=== PATIENT | male | born 2005 | race African-American/Black ===

== ENCOUNTER 2024-05-13 23:57 | Emergency (ER) | payer MEDICAID, SELFPAY ==
[2024-05-14] VITALS (64 sets, daily range): BP systolic 92–132; BP diastolic 41–93; PULSE 61–98; RESP 16–18; TEMP 36.3–37.2; O2SAT 81–100; BMI 20.1
--- NOTE | 2024-05-14 00:45 | ED.GENADULT ---
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 or homicidal thoughts to me but is heavily intoxicated. Counseled patient that he is on a police hold from law enforcement at this time. Cannot be fully evaluated while he is intoxicated. Will obtain typical labs. He was agreeable to oral Ativan. Will movement to a safe room as soon as 1 is available. Patient will need mental health tele assessment once he is sober, anticipate this in the morning. Will monitor closely overnight. I would not recommend allowing his father to visit. <Parul Salinas MD - Last Filed: 05/15/24 23:55> Reevaluation(s) Time of Reevaluation #1: 01:49 <Parul Salinas MD - Last Filed: 05/15/24 23:55> Reevaluation #1: Patient became increasingly agitated. He was given 5 mg of IM Zyprexa without adequate improvement. Because of this, a Dr. Prieto was called and he was placed in four-point restraints with the help of law enforcement. Labs are reassuring with the exception of blood alcohol level nearly triple the legal limit which was anticipated. Will attempt to wean him from restraints as able. <Parul Salinas MD - Last Filed: 05/15/24 23:55> Time of Reevaluation #2: 15:00 <Tala Franco MD - Last Filed: 05/22/24 22:18> Reevaluation #2: Up patient's slept most of the night and morning. Woke up feeling remorseful about his behavior. Mental health assessment was done and patient endorses suicidal ideation. Has a history of inpatient patient hospitalization. Is requesting inpatient hospitalization at this time as he states he does not feel safe going back to his father's place secondary to suicidal ideation. Awaiting inpatient psych placement at this time. Examination reveals a well-nourished male in no acute distress. Hemodynamically stable. Alert and cooperative. Cardiovascular regular rate rhythm, lungs clear bilaterally. Requesting dinner. <Tala Franco MD - Last Filed: 05/22/24 22:18> Time of Reevaluation #3: 20:12 <Perico Reddy MD - Last Filed: 05/14/24 21:28> Reevaluation #3: Patient accepted in sign-out from prior provider, initially presented intoxicated and suicidal. Patient was briefly in restraints due to intoxication and agitation, however has been cooperative for the better part of the day. Ongoing suicide ideation and waiting for acceptance for behavioral health admission. <Perico Reddy MD - Last Filed: 05/14/24 21:28> Additional Reevaluation(s): 9:20 p.m. patient accepted for transfer to [facility]. <Perico Reddy MD - Last Filed: 05/14/24 21:28> Vital Signs Vital signs: Initial Vital Signs Temperature 97.3 F L 05/14/24 00:18 Temperature Source Temporal Artery Scan 05/14/24 00:18 Pulse Rate 98 05/14/24 00:18 Pulse Rhythm Regular 05/14/24 00:18 Respiratory Rate 18 05/14/24 00:18 Blood Pressure 130/83 05/14/24 00:18 Blood Pressure Mean 98 05/14/24 00:18 Blood Pressure Position Sitting 05/14/24 00:18 Pulse Oximetry 99 05/14/24 00:18 Oxygen Delivery Method Room Air 05/14/24 00:18 Vital Signs Temperature 97.3 F L 05/14/24 00:18 Pulse Rate 98 05/14/24 00:18 Respiratory Rate 18 05/14/24 00:18 Blood Pressure 130/83 05/14/24 00:18 Pulse Oximetry 99 05/14/24 00:18 Oxygen Delivery Method Room Air 05/14/24 00:18 Temperature 98.9 F 05/14/24 22:13 Pulse Rate 77 05/14/24 22:13 Respiratory Rate 18 05/14/24 22:13 Blood Pressure 132/80 05/14/24 22:13 Pulse Oximetry 99 05/14/24 22:13 Oxygen Delivery Method Room Air 05/14/24 22:13 <Parul Salinas MD - Last Filed: 05/15/24 23:55> Initial Vital Signs Temperature 97.3 F L 05/14/24 00:18 Temperature Source Temporal Artery Scan 05/14/24 00:18 Pulse Rate 98 05/14/24 00:18 Pulse Rhythm Regular 05/14/24 00:18 Respiratory Rate 18 05/14/24 00:18 Blood Pressure 130/83 05/14/24 00:18 Blood Pressure Mean 98 05/14/24 00:18 Blood Pressure Position Sitting 05/14/24 00:18 Pulse Oximetry 99 05/14/24 00:18 Oxygen Delivery Method Room Air 05/14/24 00:18 Vital Signs Temperature 97.3 F L 05/14/24 00:18 Pulse Rate 98 05/14/24 00:18 Respiratory Rate 18 05/14/24 00:18 Blood Pressure 130/83 05/14/24 00:18 Pulse Oximetry 99 05/14/24 00:18 Oxygen Delivery Method Room Air 05/14/24 00:18 Temperature 98.9 F 05/14/24 22:13 Pulse Rate 77 05/14/24 22:13 Respiratory Rate 18 05/14/24 22:13 Blood Pressure 132/80 05/14/24 22:13 Pulse Oximetry 99 05/14/24 22:13 Oxygen Delivery Method Room Air 05/14/24 22:13 <Tala Franco MD - Last Filed: 05/22/24 22:18> Initial Vital Signs Temperature 97.3 F L 05/14/24 00:18 Temperature Source Temporal Artery Scan 05/14/24 00:18 Pulse Rate 98 05/14/24 00:18 Pulse Rhythm Regular 05/14/24 00:18 Respiratory Rate 18 05/14/24 00:18 Blood Pressure 130/83 05/14/24 00:18 Blood Pressure Mean 98 05/14/24 00:18 Blood Pressure Position Sitting 05/14/24 00:18 Pulse Oximetry 99 05/14/24 00:18 Oxygen Delivery Method Room Air 05/14/24 00:18 Vital Signs Temperature 97.3 F L 05/14/24 00:18 Pulse Rate 98 05/14/24 00:18 Respiratory Rate 18 05/14/24 00:18 Blood Pressure 130/83 05/14/24 00:18 Pulse Oximetry 99 05/14/24 00:18 Oxygen Delivery Method Room Air 05/14/24 00:18 Temperature 98.9 F 05/14/24 22:13 Pulse Rate 77 05/14/24 22:13 Respiratory Rate 18 05/14/24 22:13 Blood Pressure 132/80 05/14/24 22:13 Pulse Oximetry 99 05/14/24 22:13 Oxygen Delivery Method Room Air 05/14/24 22:13 <Perico Reddy MD - Last Filed: 05/14/24 21:28> Medications Administered Medications: Discontinued Medications Generic Name Dose Route Start Last Admin Trade Name Freq PRN Reason Stop Dose Admin Lorazepam 2 mg 05/14/24 00:43 05/14/24 00:52 Lorazepam 1 Mg Tablet PO 05/14/24 00:44 2 mg ONCE ONE Administration Lorazepam 2 mg 05/14/24 01:47 05/14/24 01:50 Lorazepam 2 Mg/Ml Inj IM 05/14/24 01:48 2 mg ONCE ONE Administration Olanzapine 5 mg 05/14/24 01:15 05/14/24 01:30 Olanzapine 5 Mg/Ml Inj IM 5 mg Q4H PRN Administration Agitation <Parul Salinas MD - Last Filed: 05/15/24 23:55> Discontinued Medications Generic Name Dose Route Start Last Admin Trade Name Freq PRN Reason Stop Dose Admin Lorazepam 2 mg 05/14/24 00:43 05/14/24 00:52 Lorazepam 1 Mg Tablet PO 05/14/24 00:44 2 mg ONCE ONE Administration Lorazepam 2 mg 05/14/24 01:47 05/14/24 01:50 Lorazepam 2 Mg/Ml Inj IM 05/14/24 01:48 2 mg ONCE ONE Administration Olanzapine 5 mg 05/14/24 01:15 05/14/24 01:30 Olanzapine 5 Mg/Ml Inj IM 5 mg Q4H PRN Administration Agitation <Tala Franco MD - Last Filed: 05/22/24 22:18> Discontinued Medications Generic Name Dose Route Start Last Admin Trade Name Freq PRN Reason Stop Dose Admin Lorazepam 2 mg 05/14/24 00:43 05/14/24 00:52 Lorazepam 1 Mg Tablet PO 05/14/24 00:44 2 mg ONCE ONE Administration Lorazepam 2 mg 05/14/24 01:47 05/14/24 01:50 Lorazepam 2 Mg/Ml Inj IM 05/14/24 01:48 2 mg ONCE ONE Administration Olanzapine 5 mg 05/14/24 01:15 05/14/24 01:30 Olanzapine 5 Mg/Ml Inj IM 5 mg Q4H PRN Administration Agitation <Perico Reddy MD - Last Filed: 05/14/24 21:28> Medical Decision Making Lab Data Lab results reviewed: Yes I reviewed the patient's lab results <Parul Salinas MD - Last Filed: 05/15/24 23:55> Lab results narrative: Alcohol level 3 times the legal limit, labs otherwise reassuring. <Parul Salinas MD - Last Filed: 05/15/24 23:55> Labs: Lab Results 05/14/24 05/14/24 05/14/24 Range/Units 01:09 20:30 21:14 WBC 8.24 (4.50-11.00) K/uL RBC 5.31 (4.30-5.90) m/uL Hgb 16.3 (13.5-17.5) gm/dL Hct 46.8 (37.0-53.0) % MCV 88 (80-100) fL MCH 31 (26-34) pg MCHC 35 (32-36) gm/dL RDW Coeff of Shima 12.9 (11.5-15.5) % Plt Count 318 (140-440) K/uL Neut % (Auto) 68.9 (42.0-72.0) % Lymph % (Auto) 22.5 (20-44) % Wells % (Auto) 6.2 (0.0-11.0) % Eos % (Auto) 1.7 (0.0-7.0) % Baso % (Auto) 0.6 (0.0-3.0) % Neut # (Auto) 5.68 (1.7-7.0) K/uL Lymph # (Auto) 1.85 (0.90-2.90) K/uL Wells # (Auto) 0.50 (0.00-0.90) K/UL Eos # (Auto) 0.14 (0.00-0.50) K/uL Baso # (Auto) 0.05 (0.00-0.30) K/uL Abs Immat Gran (auto) 0.01 (0.00-0.30) K/uL Imm/Tot Granulo (auto) 0.1 % Sodium 145 (135-149) mmol/L Potassium 4.0 (3.6-5.1) mmol/L Chloride 111 (96-114) mmol/L Carbon Dioxide 21 (20-32) mmol/L Anion Gap 13 (7-15) mEq/L BUN 11 (5-24) mg/dL Creatinine 0.9 (0.5-1.5) mg/dL Estimated Creat Clear 117.60 Estimated GFR 125 ml/min Glucose 90 (60-115) mg/dL Calcium 9.0 (8.4-10.6) mg/dL TSH 1.060 (0.270-4.200) uIU/mL Salicylates < 1.0 L (1.0-10) mg/dL Urine Opiates Screen Negative (Negative) Ur Oxycodone Screen Negative (Negative) Urine Methadone Screen Negative (Negative) Acetaminophen < 10.0 L (10.0-30.0) ug/mL Ur Barbiturates Screen Negative (Negative) U Tricyclic Antidepress Negative (Negative) Ur Phencyclidine Scrn Negative (Negative) Ur Amphetamines Screen Negative (Negative) U Methamphetamines Scrn Negative (Negative) U Benzodiazepines Scrn POSITIVE A (Negative) Urine Cocaine Screen Negative (Negative) U Marijuana (THC) Screen POSITIVE A (Negative) Ur Drug Screen Comment See Note Ethyl Alcohol 0.22 H < 0.01 L (0.01-0.03) % <Parul Salinas MD - Last Filed: 05/15/24 23:55> Lab Results 05/14/24 05/14/24 05/14/24 Range/Units 01:09 20:30 21:14 WBC 8.24 (4.50-11.00) K/uL RBC 5.31 (4.30-5.90) m/uL Hgb 16.3 (13.5-17.5) gm/dL Hct 46.8 (37.0-53.0) % MCV 88 (80-100) fL MCH 31 (26-34) pg MCHC 35 (32-36) gm/dL RDW Coeff of Shima 12.9 (11.5-15.5) % Plt Count 318 (140-440) K/uL Neut % (Auto) 68.9 (42.0-72.0) % Lymph % (Auto) 22.5 (20-44) % Wells % (Auto) 6.2 (0.0-11.0) % Eos % (Auto) 1.7 (0.0-7.0) % Baso % (Auto) 0.6 (0.0-3.0) % Neut # (Auto) 5.68 (1.7-7.0) K/uL Lymph # (Auto) 1.85 (0.90-2.90) K/uL Wells # (Auto) 0.50 (0.00-0.90) K/UL Eos # (Auto) 0.14 (0.00-0.50) K/uL Baso # (Auto) 0.05 (0.00-0.30) K/uL Abs Immat Gran (auto) 0.01 (0.00-0.30) K/uL Imm/Tot Granulo (auto) 0.1 % Sodium 145 (135-149) mmol/L Potassium 4.0 (3.6-5.1) mmol/L Chloride 111 (96-114) mmol/L Carbon Dioxide 21 (20-32) mmol/L Anion Gap 13 (7-15) mEq/L BUN 11 (5-24) mg/dL Creatinine 0.9 (0.5-1.5) mg/dL Estimated Creat Clear 117.60 Estimated GFR 125 ml/min Glucose 90 (60-115) mg/dL Calcium 9.0 (8.4-10.6) mg/dL TSH 1.060 (0.270-4.200) uIU/mL Salicylates < 1.0 L (1.0-10) mg/dL Urine Opiates Screen Negative (Negative) Ur Oxycodone Screen Negative (Negative) Urine Methadone Screen Negative (Negative) Acetaminophen < 10.0 L (10.0-30.0) ug/mL Ur Barbiturates Screen Negative (Negative) U Tricyclic Antidepress Negative (Negative) Ur Phencyclidine Scrn Negative (Negative) Ur Amphetamines Screen Negative (Negative) U Methamphetamines Scrn Negative (Negative) U Benzodiazepines Scrn POSITIVE A (Negative) Urine Cocaine Screen Negative (Negative) U Marijuana (THC) Screen POSITIVE A (Negative) Ur Drug Screen Comment See Note Ethyl Alcohol 0.22 H < 0.01 L (0.01-0.03) % <Tala Franco MD - Last Filed: 05/22/24 22:18> Lab Results 05/14/24 05/14/24 05/14/24 Range/Units 01:09 20:30 21:14 WBC 8.24 (4.50-11.00) K/uL RBC 5.31 (4.30-5.90) m/uL Hgb 16.3 (13.5-17.5) gm/dL Hct 46.8 (37.0-53.0) % MCV 88 (80-100) fL MCH 31 (26-34) pg MCHC 35 (32-36) gm/dL RDW Coeff of Shima 12.9 (11.5-15.5) % Plt Count 318 (140-440) K/uL Neut % (Auto) 68.9 (42.0-72.0) % Lymph % (Auto) 22.5 (20-44) % Wells % (Auto) 6.2 (0.0-11.0) % Eos % (Auto) 1.7 (0.0-7.0) % Baso % (Auto) 0.6 (0.0-3.0) % Neut # (Auto) 5.68 (1.7-7.0) K/uL Lymph # (Auto) 1.85 (0.90-2.90) K/uL Wells # (Auto) 0.50 (0.00-0.90) K/UL Eos # (Auto) 0.14 (0.00-0.50) K/uL Baso # (Auto) 0.05 (0.00-0.30) K/uL Abs Immat Gran (auto) 0.01 (0.00-0.30) K/uL Imm/Tot Granulo (auto) 0.1 % Sodium 145 (135-149) mmol/L Potassium 4.0 (3.6-5.1) mmol/L Chloride 111 (96-114) mmol/L Carbon Dioxide 21 (20-32) mmol/L Anion Gap 13 (7-15) mEq/L BUN 11 (5-24) mg/dL Creatinine 0.9 (0.5-1.5) mg/dL Estimated Creat Clear 117.60 Estimated GFR 125 ml/min Glucose 90 (60-115) mg/dL Calcium 9.0 (8.4-10.6) mg/dL TSH 1.060 (0.270-4.200) uIU/mL Salicylates < 1.0 L (1.0-10) mg/dL Urine Opiates Screen Negative (Negative) Ur Oxycodone Screen Negative (Negative) Urine Methadone Screen Negative (Negative) Acetaminophen < 10.0 L (10.0-30.0) ug/mL Ur Barbiturates Screen Negative (Negative) U Tricyclic Antidepress Negative (Negative) Ur Phencyclidine Scrn Negative (Negative) Ur Amphetamines Screen Negative (Negative) U Methamphetamines Scrn Negative (Negative) U Benzodiazepines Scrn POSITIVE A (Negative) Urine Cocaine Screen Negative (Negative) U Marijuana (THC) Screen POSITIVE A (Negative) Ur Drug Screen Comment See Note Ethyl Alcohol 0.22 H < 0.01 L (0.01-0.03) % <Perico Reddy MD - Last Filed: 05/14/24 21:28> Discharge Plan Discharge Follow Up/Referrals: Provider,Not a Local [Primary Care Provider] - <Parul Salinas MD - Last Filed: 05/15/24 23:55>
[2024-05-14] MEDS: LORazepam 1 MG TABLET 2 MG PO (00:52)
--- NOTE | 2024-05-14 01:12 | ED.NURSE ---
Pt attempting to use plastic drinking straw to cut his left upper forearm. No cuts visible from the straw. This staff member entered room and removed straw from patient. Plastic sandwich container also removed from pt room.
[2024-05-14 01:14] LABS: Basophils Absolute Auto 0.05 K/uL (0.00-0.30); Basophils Percent Auto 0.6 % (0.0-3.0); Eosinophils Absolute Auto 0.14 K/uL (0.00-0.50); Eosinophils Percent Auto 1.7 % (0.0-7.0); Hematocrit 46.8 % (37.0-53.0); Hemoglobin* 16.3 gm/dL (13.5-17.5); Immature Granulocytes Abs Auto 0.01 K/uL (0.00-0.30); Immature Granulocytes Pct Auto 0.1 %; Lymphocytes Absolute Auto 1.85 K/uL (0.90-2.90); Lymphocytes Percent Auto 22.5 % (20-44); Mean Corpuscular HGB Conc 35 gm/dL (32-36); Mean Corpuscular Hemoglobin 31 pg (26-34); Mean Corpuscular Volume 88 fL (80-100); Monocytes Percent Auto 6.2 % (0.0-11.0); Neutrophils Absolute Auto 5.68 K/uL (1.7-7.0); Neutrophils Percent Auto 68.9 % (42.0-72.0); Platelet Count* 318 K/uL (140-440); RDW Coefficient of Variation % 12.9 % (11.5-15.5); Red Blood Count 5.31 m/uL (4.30-5.90); White Blood Count* 8.24 K/uL (4.50-11.00)
[2024-05-14 01:27] LABS: Chloride* 111 mmol/L (96-114)
[2024-05-14 01:28] LABS: Sodium* 145 mmol/L (135-149)
[2024-05-14 01:30] LABS: Anion Gap 13 mEq/L (7-15); Carbon Dioxide* 21 mmol/L (20-32); Creatinine* 0.9 mg/dL (0.5-1.5); Estimated Glomerular Filt Rate 125 ml/min
[2024-05-14] MEDS: OLANZapine 5 MG/ML inj IM (01:30)
[2024-05-14 01:31] LABS: Blood Urea Nitrogen* 11 mg/dL (5-24); Ethanol* 0.22 % (0.01-0.03); Glucose* 90 mg/dL (60-115)
[2024-05-14 01:32] LABS: Acetaminophen* < 10.0 ug/mL (10.0-30.0); Salicylate* < 1.0 mg/dL (1.0-10); Slide Review Reflex No
[2024-05-14] MEDS: LORazepam 2 MG/ML inj IM (01:50)
--- NOTE | 2024-05-14 02:10 | ED.NURSE ---
VS were taken BP 121/69, P91, R18, O2 sats 92% on RA. Restraints checked for tightness, 2 fingers are able to be placed under each restraint. CMS intact in each limb.
--- NOTE | 2024-05-14 05:47 | ED.NURSE ---
All restraints on patient removed at 0530, doctor notified.
[2024-05-14 20:51] LABS: Amphetamine Screen Urine Negative (Negative); Barbiturate Screen Urine Negative (Negative); Cocaine Screen Urine Negative (Negative); Methadone Screen Urine Negative (Negative); Methamphetamines Screen Urine Negative (Negative); Opiate Screen Urine Negative (Negative); Phencyclidine Screen Urine Negative (Negative); Tricyclic Antidepressant Urine Negative (Negative)
[2024-05-14 20:52] LABS: Oxycodone Screen Urine Negative (Negative)
[2024-05-14 22:04] LABS: Ethanol* < 0.01 % (0.01-0.03)
[2024-05-14 22:31] LABS: Benzodiazepines Screen Urine POSITIVE (Negative); Cannabinoid Screen Urine POSITIVE (Negative)
== END 2024-05-14 22:39 | disposition short-term general hospital (02) ==
PROVIDERS: Family Medicine; Emergency Provider Family Medicine
DX: F10.129 Alcohol abuse with intoxication, unspecified (principal); R45.851 Suicidal ideations
CPT/HCPCS: 36415; 80048; 80143; 80179; 80306; 82077; 84443; 85025; 94761; 96372; 99285; A9270; J2060

== ENCOUNTER 2024-05-14 22:28 | Outpatient (CLI) | payer MEDICAID, SELFPAY | END 2024-05-14 22:29 | disposition home or self-care (01) | LOC: AMB 05-25 02:18 | PROVIDERS: Visit Provider Family Medicine | DX: R45.851 Suicidal ideations (principal) | CPT/HCPCS: A0425; A0428 ==

== ENCOUNTER 2025-05-03 23:41 | Emergency (ER) | payer OTHER, SELFPAY ==
[2025-05-03 23:58] VITALS: BP 120/94; PULSE 57; RESP 20; TEMP 36.6; O2SAT 100; BMI 22.3
[2025-05-04 00:28] LABS: Cannabinoid Screen Urine Negative (Negative); Methamphetamines Screen Urine Negative (Negative); Tricyclic Antidepressant Urine Negative (Negative)
--- NOTE | 2025-05-04 00:38 | ED.GENADULT ---
HPI - General Adult General Chief complaint: Psychiatric Problem/Disorder <Parul Salinas MD - Last Filed: 05/06/25 19:55> Stated complaint: mental health <Parul Salinas MD - Last Filed: 05/06/25 19:55> Time Seen by Provider: 05/04/25 00:01 <Parul Salinas MD - Last Filed: 05/06/25 19:55> Source: patient <Parul Salinas MD - Last Filed: 05/06/25 19:55> Mode of arrival: other (Police) <Parul Salinas MD - Last Filed: 05/06/25 19:55> Limitations: no limitations <Parul Salinas MD - Last Filed: 05/06/25 19:55> History of Present Illness HPI narrative: 19-year-old male presents to the emergency department for evaluation of suicidal ideations. He has a fairly long history of mental health issues, reports depression and anxiety but denies a prior history of psychosis, schizophrenia or bipolar disorder. He also has a significant history of substance abuse which certainly impairs his meds as well. He reports that he had previously been using methamphetamines, stopped that 3 months ago and has been having increased suicidal ideation ever since. He was hospitalized about a year and half ago at [facility] for 3 months. Reported that he had quite a bit of improvement while there but symptoms worsened after discharge and he admits that he was poorly compliant with follow-up. He was sent to [facility] again over a month ago from an ED in [place] per his report. He says that he was there for under a week when he discharged against medical advice. He admits that he was starting to have some improvement in symptoms at the time of discharge. He has been staying with his dad here in the [facility] ever since. Tonight, he interviewed for a job at [employer], he did not get the job. He was quite frustrated by this and went home. He told his dad that he wants to kill himself and then left for a walk to cool down. Dad he had the family gun and called the police to help evaluate and care for the patient. Please bring the patient to the ED. Patient states he is not currently using any substances besides marijuana and alcohol. He has had a couple of beers and a few shots tonight but is not intoxicated. He denies any recent relationship changes. He does struggle financially as he is not had a job for several months. 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 He quit that job to move back to [place]. He was only there temporarily when he came back to [place]. He denies any support system back in [place] currently, but was raised there by adoptive parents. His father is here in [place]. He is avidly that he was treated with any psychotropic medications while hospitalized last month. He is not currently using any treatment medications or working with a counselor, psychiatrist or other mental health professional. He would like to go back to [facility] if possible, he does regret leaving against medical advice and is motivated to pursue appropriate therapy and medications if recommended. Does feel like he would shoot himself with begun in his home, feels unsafe at this time. He describes what sounds to me more like intrusive thoughts with voices telling him to harm himself overnight but it sounds like these are more so coming from his own head then any type of command. He does not seem to be exhibiting any paranoia, grandiose delusions or other alterations of reality. A review his note from May of 2024, the last time he was in our facility. He was very intoxicated and was quite agitated. He did require restraints and injectable medications. He reports that his past medical history is benign. He does not have any major long-term health problems. No long-term medications. Amoxicillin allergy noted. ROS is negative for medical complications times 12 systems, endorses only that the depression symptoms and suicidal ideation as above. <Parul Salinas MD - Last Filed: 05/06/25 19:55> Related Data Home medications: Home Medications ?Medication ?Instructions ?Recorded ?Confirmed No Known Home Medications 05/04/25 05/04/25 <Parul Salinas MD - Last Filed: 05/06/25 19:55> Allergies/adverse reactions: Allergies Allergy/AdvReac Type Severity Reaction Status Date / Time amoxicillin Allergy Intermediate Hives Verified 05/04/25 00:09 <Parul Salinas MD - Last Filed: 05/06/25 19:55> [facility] Social History: Social History Smoking Status: Current some day smoker How often do you have a drink containing alcohol: 2-4 times a month How many standard drinks containing alcohol do you have on a typical day: 3 or 4 How often do you have six or more drinks on one occasion: Less than monthly AUDIT-C Alcohol total score: 4 Non-prescribed substance use: marijuana (any form) and amphetamines/methamphetamines service: No <Parul Salinas MD - Last Filed: 05/06/25 19:55> Exam Const: Vital Signs, click to edit/add: Vital Signs - 24 hr 05/03/25 23:58 05/04/25 01:15 05/04/25 01:25 Temperature 97.8 F 98.1 F Pulse Rate Pulse Rate [Right Pulse Oximeter] 57 L 67 Respiratory Rate 20 16 Blood Pressure [Ri ght Upper Arm] 120/94 H 118/86 Pulse Oximetry 100 96 97 Oxygen Delivery Me thod Room Air Room Air 05/04/25 02:00 05/04/25 09:00 Temperature 98 F 98.3 F Pulse Rate 74 Pulse Rate [Right Pulse Oximeter] 72 Respiratory Rate 17 16 Blood Pressure [Ri ght Upper Arm] 116/76 Pulse Oximetry 97 99 Oxygen Delivery Me thod Room Air <Parul Salinas MD - Last Filed: 05/06/25 19:55> Vital Signs, click to edit/add: Vital Signs - 24 hr 05/03/25 23:58 05/04/25 01:15 05/04/25 01:25 Temperature 97.8 F 98.1 F Pulse Rate Pulse Rate [Right Pulse Oximeter] 57 L 67 Respiratory Rate 20 16 Blood Pressure [Ri ght Upper Arm] 120/94 H 118/86 Pulse Oximetry 100 96 97 Oxygen Delivery Me thod Room Air Room Air 05/04/25 02:00 05/04/25 09:00 Temperature 98 F 98.3 F Pulse Rate 74 Pulse Rate [Right Pulse Oximeter] 72 Respiratory Rate 17 16 Blood Pressure [Ri ght Upper Arm] 116/76 Pulse Oximetry 97 99 Oxygen Delivery Me thod Room Air <Neal Monaco MD - Last Filed: 05/07/25 07:12> Documenting provider has reviewed patient's vital signs: yes <Parul Salinas MD - Last Filed: 05/06/25 19:55> Common normals: no apparent distress and alert <Parul Salinas MD - Last Filed: 05/06/25 19:55> General appearance: cooperative and comfortable <Parul Salinas MD - Last Filed: 05/06/25 19:55> HENMT: Common normals: normocephalic, nasal mucous membranes and turbinates normal, moist oral mucous membranes, oropharynx normal and dentition normal <Parul Salinas MD - Last Filed: 05/06/25 19:55> Head and scalp: normocephalic <Parul Salinas MD - Last Filed: 05/06/25 19:55> Face and sinus: normal facial exam <Parul Salinas MD - Last Filed: 05/06/25 19:55> Nose: nasal mucous membranes and turbinates normal <Parul Salinas MD - Last Filed: 05/06/25 19:55> Mouth: oral and palatal mucosa normal <Parul Salinas MD - Last Filed: 05/06/25 19:55> Eye: Common normals: conjunctivae normal <Parul Salinas MD - Last Filed: 05/06/25 19:55> General eye: normal appearance of both eyes <Parul Salinas MD - Last Filed: 05/06/25 19:55> Conjunctiva: conjunctiva(e) normal <Parul Salinas MD - Last Filed: 05/06/25 19:55> Neck & C-Spine: Common normals: full ROM and no meningeal signs <Parul Salinas MD - Last Filed: 05/06/25 19:55> General: normal visual inspection <Parul Salinas MD - Last Filed: 05/06/25 19:55> Resp: Common normals: normal respiratory effort, no use of accessory muscles and clear to auscultation bilaterally <MD Vicky Cr Last Filed: 05/06/25 19:55> Auscultation: clear to auscultation bilaterally <Parul Salinas MD - Last Filed: 05/06/25 19:55> Cardio: Common normals: regular rate, regular rhythm, S1 normal heart sound, S2 normal heart sound and no murmurs <MD Vicky Cr Last Filed: 05/06/25 19:55> Rate: regular rate <Parul Salinas MD - Last Filed: 05/06/25 19:55> Rhythm: regular rhythm <MD Vicky Cr Last Filed: 05/06/25 19:55> Heart sounds: S1 normal and S2 normal <Parul Salinas MD - Last Filed: 05/06/25 19:55> GI: Common normals: Normal to inspection, nondistended, normoactive bowel sounds present, soft to palpation, non-tender, no hepatosplenomegaly and no masses <Parul Salinas MD - Last Filed: 05/06/25 19:55> Palpation: soft and no hepatosplenomegaly <MD Vicky Cr Last Filed: 05/06/25 19:55> Back & Pelvis: Common normals: thoracic and lumbar spine normal to inspection <MD Vicky Cr Last Filed: 05/06/25 19:55> Extremity: Common normals: normal to inspection, normal capillary refill and no pedal edema <MD Vicky Cr Last Filed: 05/06/25 19:55> Other: Old cutting scars, nothing fresh. <MD Vicky Cr Last Filed: 05/06/25 19:55> Neuro: Common normals: moves all extremities and no focal motor deficits <MD Vicky Cr Last Filed: 05/06/25 19:55> Sensorium/orientation: alert <MD Vicky Cr Last Filed: 05/06/25 19:55> Meningeal signs: no meningeal signs <MD Vicky Cr Last Filed: 05/06/25 19:55> Speech: speech normal <Parul Salinas MD - Last Filed: 05/06/25 19:55> Motor exam: strength 5/5 throughout <Parul Salinas MD - Last Filed: 05/06/25 19:55> Psych: Common normals: thought process normal and speech normal <Parul Salinas MD - Last Filed: 05/06/25 19:55> Appearance: grossly normal <Parul Salinas MD - Last Filed: 05/06/25 19:55> Attitude: calm <Parul Salinas MD - Last Filed: 05/06/25 19:55> Speech: normal speech <Parul Salinas MD - Last Filed: 05/06/25 19:55> Mood and affect: depressed mood and flat affect <Parul Salinas MD - Last Filed: 05/06/25 19:55> Thought process: normal thought process <Parul Salinas MD - Last Filed: 05/06/25 19:55> Thought content: suicidality; no homicidality, no delusion(s) and no hallucination(s) <Parul Salinas MD - Last Filed: 05/06/25 19:55> Attention/concentration: attention grossly intact <Parul Salinas MD - Last Filed: 05/06/25 19:55> Memory/cognition: memory grossly intact <Parul Salinas MD - Last Filed: 05/06/25 19:55> Insight: fair <Parul Salinas MD - Last Filed: 05/06/25 19:55> Judgement: fair <Parul Salinas MD - Last Filed: 05/06/25 19:55> Course Course ED Course: 19-year-old male presenting with depression, suicidal ideations. I certainly think alcohol could be a catalyst tonight but it seems as though he has been having suicidality for several weeks. Recently left [facility] admitted against medical advice, regrets this. It does not sound necessarily like he is exhibiting psychosis but is having some voices telling him to harm himself. It is unclear if these are more intrusive thoughts or if this represents true psychosis. Substance use certainly does make this worse as he admits. At this time, I do not think he is safe to go home and needs a more thorough evaluation. Will obtain basic medical labs and screening, telehealth evaluation. May benefit from inpatient treatment. Await recommendations from mental health team. Patient is not showing any significant agitation here right now but does have a history of this in our emergency department. I think it will probably take several days potentially to get him placed. I offered patient oral Zyprexa and lorazepam which he has tolerated here before very well just is something to help him remain calm and he was agreeable to taking this. Update: Patient is voluntary at this time, telehealth team is recommending inpatient placement based on high risk of suicide, access to firearms. I agree. Will begin process for inpatient mental health treatment. Second update: Labs are back and reviewed. They are all reassuring. He is medically cleared for inpatient placement at this time. 8:00 a.m.: Handing over care to incoming day shift partner. There were no inpatient beds available overnight. Patient remains voluntary, sleeping with stable vital signs. He did take the medications that were recommended orally and we have not had any worrisome behaviors. <Parul Salinas MD - Last Filed: 05/06/25 19:55> Reevaluation(s) Time of Reevaluation #1: 15:21 <Neal Monaco MD - Last Filed: 05/07/25 07:12> Reevaluation #1: the patient is awaiting transfer to a psychiatric facility. Psychiatric facility prefers the patient to be placed on a mental health hold. <Neal Monaco MD - Last Filed: 05/07/25 07:12> Vital Signs Vital signs: Initial Vital Signs Temperature 97.8 F 05/03/25 23:58 Temperature Source Temporal Artery Scan 05/03/25 23:58 Pulse Rate 57 L 05/03/25 23:58 Pulse Rhythm Regular 05/03/25 23:58 Respiratory Rate 20 05/03/25 23:58 Blood Pressure 120/94 H 05/03/25 23:58 Blood Pressure Mean 102 05/03/25 23:58 Pulse Oximetry 100 05/03/25 23:58 Oxygen Delivery Method Room Air 05/03/25 23:58 Vital Signs Temperature 97.8 F 05/03/25 23:58 Pulse Rate 57 L 05/03/25 23:58 Respiratory Rate 20 05/03/25 23:58 Blood Pressure 120/94 H 05/03/25 23:58 Pulse Oximetry 100 05/03/25 23:58 Oxygen Delivery Method Room Air 05/03/25 23:58 Temperature 98.3 F 05/04/25 16:19 Pulse Rate 62 05/04/25 16:19 Respiratory Rate 18 05/04/25 16:19 Blood Pressure 126/78 05/04/25 16:19 Pulse Oximetry 98 05/04/25 16:19 Oxygen Delivery Method Room Air 05/04/25 16:19 <Parul Salinas MD - Last Filed: 05/06/25 19:55> Initial Vital Signs Temperature 97.8 F 05/03/25 23:58 Temperature Source Temporal Artery Scan 05/03/25 23:58 Pulse Rate 57 L 05/03/25 23:58 Pulse Rhythm Regular 05/03/25 23:58 Respiratory Rate 20 05/03/25 23:58 Blood Pressure 120/94 H 05/03/25 23:58 Blood Pressure Mean 102 05/03/25 23:58 Pulse Oximetry 100 05/03/25 23:58 Oxygen Delivery Method Room Air 05/03/25 23:58 Vital Signs Temperature 97.8 F 05/03/25 23:58 Pulse Rate 57 L 05/03/25 23:58 Respiratory Rate 20 05/03/25 23:58 Blood Pressure 120/94 H 05/03/25 23:58 Pulse Oximetry 100 05/03/25 23:58 Oxygen Delivery Method Room Air 05/03/25 23:58 Temperature 98.3 F 05/04/25 16:19 Pulse Rate 62 05/04/25 16:19 Respiratory Rate 18 05/04/25 16:19 Blood Pressure 126/78 05/04/25 16:19 Pulse Oximetry 98 05/04/25 16:19 Oxygen Delivery Method Room Air 05/04/25 16:19 <Neal Monaco MD - Last Filed: 05/07/25 07:12> Medications Administered Medications: Discontinued Medications Generic Name Dose Route Start Last Admin Trade Name Freq PRN Reason Stop Dose Admin Lorazepam 1 mg 05/04/25 00:38 05/04/25 01:10 Lorazepam 1 Mg Tablet PO 05/04/25 00:39 1 mg ONCE ONE Administration Olanzapine 5 mg 05/04/25 00:38 05/04/25 01:11 Olanzapine 5 Mg Tab.Rapdis PO 05/04/25 00:39 5 mg ONCE ONE Administration <Parul Salinas MD - Last Filed: 05/06/25 19:55> Discontinued Medications Generic Name Dose Route Start Last Admin Trade Name Uvaldo PRN Reason Stop Dose Admin Lorazepam 1 mg 05/04/25 00:38 05/04/25 01:10 Lorazepam 1 Mg Tablet PO 05/04/25 00:39 1 mg ONCE ONE Administration Olanzapine 5 mg 05/04/25 00:38 05/04/25 01:11 Olanzapine 5 Mg Tab.Rapdis PO 05/04/25 00:39 5 mg ONCE ONE Administration <Neal Monaco MD - Last Filed: 05/07/25 07:12> Medical Decision Making Lab Data Lab results reviewed: Yes I reviewed the patient's lab results <Parul Salinas MD - Last Filed: 05/06/25 19:55> Lab results narrative: Labs reassuring. <Parul Salinas MD - Last Filed: 05/06/25 19:55> Labs: Lab Results 05/04/25 05/04/25 Range/Units 00:11 00:42 WBC 6.15 (4.50-11.00) K/uL RBC 4.82 (4.30-5.90) m/uL Hgb 14.1 (13.5-17.5) gm/dL Hct 42.4 (37.0-53.0) % MCV 88 (80-100) fL MCH 29 (26-34) pg MCHC 33 (32-36) gm/dL RDW Coeff of Shima 14.5 (11.5-15.5) % Plt Count 344 (140-440) K/uL Neut % (Auto) 45.5 (42.0-72.0) % Lymph % (Auto) 41.3 (20-44) % [place] % (Auto) 8.1 (0.0-11.0) % Eos % (Auto) 3.7 (0.0-7.0) % Baso % (Auto) 0.7 (0.0-3.0) % Neut # (Auto) 2.80 (1.7-7.0) K/uL Lymph # (Auto) 2.54 (0.90-2.90) K/uL [place] # (Auto) 0.50 (0.00-0.90) K/UL Eos # (Auto) 0.23 (0.00-0.50) K/uL Baso # (Auto) 0.04 (0.00-0.30) K/uL Abs Immat Gran (auto) 0.04 (0.00-0.30) K/uL Imm/Tot Granulo (auto) 0.7 % Sodium 139 (135-149) mmol/L Potassium 3.8 (3.6-5.1) mmol/L Chloride 102 (96-114) mmol/L Carbon Dioxide 23 (20-32) mmol/L Anion Gap 14 (7-15) mEq/L BUN 10 (5-24) mg/dL Creatinine 0.9 (0.5-1.5) mg/dL Estimated Creat Clear 133.28 Estimated GFR 125 ml/min Glucose 89 (60-115) mg/dL Calcium 8.6 (8.4-10.6) mg/dL TSH 1.160 (0.270-4.200) uIU/mL Salicylates < 1.0 L (1.0-10) mg/dL Urine Opiates Screen Negative (Negative) Ur Oxycodone Screen Negative (Negative) Urine Methadone Screen Negative (Negative) Acetaminophen < 10.0 (10.0-30.0) ug/mL Ur Barbiturates Screen Negative (Negative) U Tricyclic Antidepress Negative (Negative) Ur Phencyclidine Scrn Negative (Negative) Ur Amphetamines Screen Negative (Negative) U Methamphetamines Scrn Negative (Negative) U Benzodiazepines Scrn Negative (Negative) Urine Cocaine Screen Negative (Negative) U Marijuana (THC) Screen Negative (Negative) Ur Drug Screen Comment See Note Ethyl Alcohol 0.11 H (0.01-0.03) % <Parul Salinas MD - Last Filed: 05/06/25 19:55> Lab Results 05/04/25 05/04/25 Range/Units 00:11 00:42 WBC 6.15 (4.50-11.00) K/uL RBC 4.82 (4.30-5.90) m/uL Hgb 14.1 (13.5-17.5) gm/dL Hct 42.4 (37.0-53.0) % MCV 88 (80-100) fL MCH 29 (26-34) pg MCHC 33 (32-36) gm/dL RDW Coeff of Shima 14.5 (11.5-15.5) % Plt Count 344 (140-440) K/uL Neut % (Auto) 45.5 (42.0-72.0) % Lymph % (Auto) 41.3 (20-44) % [place] % (Auto) 8.1 (0.0-11.0) % Eos % (Auto) 3.7 (0.0-7.0) % Baso % (Auto) 0.7 (0.0-3.0) % Neut # (Auto) 2.80 (1.7-7.0) K/uL Lymph # (Auto) 2.54 (0.90-2.90) K/uL [place] # (Auto) 0.50 (0.00-0.90) K/UL Eos # (Auto) 0.23 (0.00-0.50) K/uL Baso # (Auto) 0.04 (0.00-0.30) K/uL Abs Immat Gran (auto) 0.04 (0.00-0.30) K/uL Imm/Tot Granulo (auto) 0.7 % Sodium 139 (135-149) mmol/L Potassium 3.8 (3.6-5.1) mmol/L Chloride 102 (96-114) mmol/L Carbon Dioxide 23 (20-32) mmol/L Anion Gap 14 (7-15) mEq/L BUN 10 (5-24) mg/dL Creatinine 0.9 (0.5-1.5) mg/dL Estimated Creat Clear 133.28 Estimated GFR 125 ml/min Glucose 89 (60-115) mg/dL Calcium 8.6 (8.4-10.6) mg/dL TSH 1.160 (0.270-4.200) uIU/mL Salicylates < 1.0 L (1.0-10) mg/dL Urine Opiates Screen Negative (Negative) Ur Oxycodone Screen Negative (Negative) Urine Methadone Screen Negative (Negative) Acetaminophen < 10.0 (10.0-30.0) ug/mL Ur Barbiturates Screen Negative (Negative) U Tricyclic Antidepress Negative (Negative) Ur Phencyclidine Scrn Negative (Negative) Ur Amphetamines Screen Negative (Negative) U Methamphetamines Scrn Negative (Negative) U Benzodiazepines Scrn Negative (Negative) Urine Cocaine Screen Negative (Negative) U Marijuana (THC) Screen Negative (Negative) Ur Drug Screen Comment See Note Ethyl Alcohol 0.11 H (0.01-0.03) % <Neal Monaco MD - Last Filed: 05/07/25 07:12> Discharge Plan Discharge Clinical Impression: Suicidal ideation <Parul Salinas MD - Last Filed: 05/06/25 19:55> Patient Disposition: Xfer Other <Parul Salinas MD - Last Filed: 05/06/25 19:55> Prescriptions: No Action No Known Home Medications <Parul Salinas MD - Last Filed: 05/06/25 19:55> Stand Alone Forms: My[facility] Info Instructions <Parul Salinas MD - Last Filed: 05/06/25 19:55>
[2025-05-04 00:48] LABS: Hematocrit* 42.4 % (37.0-53.0); Hemoglobin* 14.1 gm/dL (13.5-17.5); Immature Granulocytes Abs Auto 0.04 K/uL (0.00-0.30); Immature Granulocytes Pct Auto 0.7 %; Lymphocytes Absolute Auto 2.54 K/uL (0.90-2.90); Mean Corpuscular HGB Conc 33 gm/dL (32-36); Mean Corpuscular Hemoglobin 29 pg (26-34); Mean Corpuscular Volume 88 fL (80-100); RDW Coefficient of Variation % 14.5 % (11.5-15.5); Red Blood Count* 4.82 m/uL (4.30-5.90); White Blood Count* 6.15 K/uL (4.50-11.00)
[2025-05-04 00:50] LABS: Slide Review Reflex No
[2025-05-04 01:04] LABS: Chloride* 102 mmol/L (96-114)
[2025-05-04 01:05] LABS: Potassium* 3.8 mmol/L (3.6-5.1); Sodium* 139 mmol/L (135-149)
[2025-05-04 01:07] LABS: Blood Urea Nitrogen* 10 mg/dL (5-24); Creatinine* 0.9 mg/dL (0.5-1.5); Est. Creatinine Clearance* 133.28; Estimated Glomerular Filt Rate 125 ml/min
[2025-05-04 01:08] LABS: Anion Gap 14 mEq/L (7-15); Calcium* 8.6 mg/dL (8.4-10.6); Carbon Dioxide* 23 mmol/L (20-32); Ethanol* 0.11 % (0.01-0.03); Glucose* 89 mg/dL (60-115)
[2025-05-04 01:11] LABS: Acetaminophen* < 10.0 ug/mL (10.0-30.0); Salicylate* < 1.0 mg/dL (1.0-10)
[2025-05-04 01:15] VITALS: BP 118/86; PULSE 67; RESP 16; TEMP 36.7; O2SAT 96
[2025-05-04 01:25] VITALS: O2SAT 97
[2025-05-04 01:43] LABS: TSH With Reflex to FT4* 1.160 uIU/mL (0.270-4.200)
[2025-05-04 02:00] VITALS: PULSE 74; RESP 17; TEMP 36.6; O2SAT 97
[2025-05-04 09:00] VITALS: BP 116/76; PULSE 72; RESP 16; TEMP 36.8; O2SAT 99
--- NOTE | 2025-05-04 15:36 | PC.SOCIAL ---
Discharge planning: workers compensation claims specialist re-faxed pt's referral to [facility] this morning, fax number #[phone]. YULIA had tried to get placement for the pt, but was unsuccessful after trying six locations. [facility] was one of the locations that YULIA had tried, but they didn't have beds at the time. workers compensation claims specialist confirmed with intake at [facility] #[phone] that they did now have beds available when the referral was resent. workers compensation claims specialist spoke to intake at [facility] and they asked if the pt could be put on a hold. The provider following the pt did put the pt on a hold and the hold paperwork was faxed to [facility]. [facility] accepted the pt for admission and will follow-up with the ED staff on next steps for transport, etc. Social work to follow-up as needed.
[2025-05-04 16:19] VITALS: BP 126/78; PULSE 62; RESP 18; TEMP 36.8; O2SAT 98
== END 2025-05-04 16:30 | disposition other institution (70) ==
PROVIDERS: Emergency Provider Family Medicine
DX: R45.851 Suicidal ideations (principal); F32.A Depression, unspecified
CPT/HCPCS: 36415; 80048; 80143; 80179; 80306; 82077; 84443; 85025; 94761; 99284; 99285; Q3014; A9270

== ENCOUNTER 2025-05-04 16:26 | Outpatient (CLI) | payer OTHER, SELFPAY | END 2025-05-04 16:27 | disposition home or self-care (01) | LOC: AMB 06-19 01:52 | PROVIDERS: Visit Provider Internal Medicine | DX: R45.851 Suicidal ideations (principal) | CPT/HCPCS: A0425; A0428 ==